=== PATIENT | female | born 1980 | race Caucasian/White ===

== ENCOUNTER 2019-11-30 23:24 | Emergency (ER) | payer SELFPAY ==
[2019-11-30 23:34] VITALS: BP 131/90
[2019-12-01] MEDS ORDERED: NAPROXEN 250MG TABLET PO ONE
== END 2019-12-01 00:48 | disposition left against medical advice (07) ==
LOC: ER 23:24
DX: S59.802D Other specified injuries of left elbow, subsequent encounter (principal); X58.XXXD Exposure to other specified factors, subsequent encounter; Z90.710 Acquired absence of both cervix and uterus
CPT/HCPCS: 99281